=== PATIENT | male | born 1985 | race Caucasian/White ===

== ENCOUNTER 2016-10-31 20:25 | Emergency (ER) | payer MEDICARE ==
[~2016-10-31] VITALS: Ht 175.3 cm; Wt 81.6 kg
[~2016-10-31 20:25] MED LIST: [UNRECOGNIZED DRUG - OTHER] PO
--- NOTE | 2016-10-31 20:47 | NUR ---
SPOKE WITH OFELIA FROM POISON CONTROL. CAN CONSIDER ACTIVATED CHARCOAL AT MD'S DISCRETION. POSSIBLE SEIZURE AND ASPIRATION RISK. RECOMMEND OBS, 6 HOURS FROM TIME OF INGESTION, BENZOS IF PT PRESENTS WITH SEIZURES OR AGITATION, BICARB BOLUS IF QRS INTERVAL IS GREATER THAN 120, CARDIAC MONITORING, BASIC TOX LABS(TYLENOL, ASPIRIN, ALC), BMP. RISK OF DROWSINESS, TACHYCARDIA. IN SEVERE CASES CAN LEAD TO SEIZURES, COMA, RESPIRATORY DEPRESSION, HYPOTENSION. GASTRIC LAVAGE IS NOT RECOMMENDED.
[2016-10-31] MEDS ORDERED: ACTIVATED CHARCOAL 25 GM/120 ML TUBE ONE (20:48)
[2016-10-31 20:56] LABS: BASOPHILS # (AUTO) 0.1 /CMM (0.0-0.2); EOSINOPHILS % (AUTO) 0.8 % (0.0-6.0); HEMATOCRIT 47 % (39-51); HEMOGLOBIN 15.5 g/dL (13.5-17.5); LYMPHOCYTES # (AUTO) 1.1 /CMM (0.8-4.8); LYMPHOCYTES % (AUTO) 21.5 % (20.0-44.0); MEAN CORPUSCULAR HEMOGLOBIN 32 PG (26.0-33.0); MEAN CORPUSCULAR HGB CONC 33 g/dl (31.0-36.0); MEAN CORPUSCULAR VOLUME 97 fL (80-96); MONOCYTES # (AUTO) 0.7 /CMM (0.1-1.30); MONOCYTES % (AUTO) 12.2 % (2.0-12.0); NEUTROPHILS # (AUTO) 3.4 /CMM (1.8-8.9); NEUTROPHILS % (AUTO) 64.5 % (43.0-81.0); PLATELET COUNT (AUTO) 249 /CMM (150-450); RDW COEFFICIENT OF VARIATION 12.5 (11.5-15.0); RED BLOOD CELL COUNT(AUTO) 4.82 MIL/uL (4.5-6.0); WHITE BLOOD COUNT (AUTO) 5.3 K/uL (4.3-11.0)
[2016-10-31 20:57] LABS: APPEARANCE,URINE Clear (CLEAR); BILIRUBIN,URINE Negative (NEGATIVE); BLOOD, URINE Negative Ery/uL (NEGATIVE); COLOR,URINE Yellow (YELLOW); KETONES,URINE Negative (NEGATIVE); LEUKOCYTE ESTERASE ,URINE Negative (NEGATIVE); NITRITE, URINE Negative (NEGATIVE); PH,URINE 5.5 (5.0-8.0); PROTEIN,URINE Negative (NEGATIVE); UGLUCOSE Negative (NEGATIVE); UROBILINOGEN,URINE 0.2 EU/dL (0.2)
[2016-10-31] MEDS ORDERED: IV NS 0.9% 1,000 ML BAG IV ONE (21:00)
[2016-10-31] MEDS ORDERED: ACTIVATED CHARCOAL 25 GM/120 ML TUBE PO ONE (21:00)
--- NOTE | 2016-10-31 21:00 | NUR ---
PT REFUSED ACTIVATED CHARCOAL. NOTIFIED
[2016-10-31 21:10] LABS: CALCIUM, SERUM 8.4 mg/dL (8.5-10.1); CARBON DIOXIDE 26 mmol/L (21-32); CHLORIDE 110 mmol/L (98-107); CREATININE 1.2 mg/dL (0.6-1.3); GLUCOSE 127 mg/dL (74-106); POTASSIUM 3.5 mmol/L (3.5-5.1); SODIUM SERUM 141 mmol/L (136-145); UREA NITROGEN, BLOOD 13 mg/dL (7-18)
--- NOTE | 2016-10-31 21:17 | NUR ---
PT RESTING IN BED COMFORTABLY. WILL CONTINUE TO MONITOR.
[2016-10-31 21:24] LABS: ALANINE AMINOTRANSFERASE 15 U/L (12-78); ALBUMIN 3.8 g/dL (3.4-5.0); ALCOHOL, BLOOD < 3 mg/dL (0-0); ALKALINE PHOSPHATASE 51 U/L (46-116); ASPARTATE AMINOTRANSFERASE 24 U/L (15-37); BILIRUBIN,DIRECT 0.1 mg/dL (0.0-0.2); BILIRUBIN,TOTAL 0.3 mg/dL (0.2-1.0); SALICYLATE < 2.8 mg/dL (2.8-20.0); TOTAL PROTEIN, SERUM 6.7 g/dL (6.4-8.2)
[2016-10-31 21:25] LABS: ACETAMINOPHEN < 2 ug/ml (10-30)
--- NOTE | 2016-10-31 23:37 | NUR ---
PT IS RESTING IN ER ROOM. WILL CONITNUE TO MONITOR
--- NOTE | 2016-11-01 01:07 | NUR ---
ART CLS AT BED SIDE FOR EVAL
[2016-11-01 01:17] VITALS: BP 142/80
== END 2016-11-01 01:18 | disposition home or self-care (01) ==
LOC: ER 20:26
DX: T42.8X1A Poisoning by antiparkinsonism drugs and other central muscle-tone depressants, accidental (unintentional), initial encounter (principal); F32.9 Major depressive disorder, single episode, unspecified; F41.9 Anxiety disorder, unspecified; F43.10 Post-traumatic stress disorder, unspecified; Y92.89 Other specified places as the place of occurrence of the external cause
CPT/HCPCS: 36415; 80048; 80076; 80305; 80329; 81001; 85025; 93005; 96360; 99285; A4606; G0480 ×2; J7030 ×2; 81000-TC; Z7610

== ENCOUNTER 2018-01-25 09:52 | Emergency (ER) | payer MEDICARE ==
[~2018-01-25] VITALS: Ht 188 cm; Wt 102.5 kg
[2018-01-25 10:36] LABS: BASOPHILS # (AUTO) 0.1 /CMM (0.0-0.2); BASOPHILS % (AUTO) 0.8 % (0.0-2.0); EOSINOPHILS % (AUTO) 0.5 % (0.0-6.0); HEMATOCRIT 57 % (39-51); LYMPHOCYTES # (AUTO) 0.8 /CMM (0.8-4.8); LYMPHOCYTES % (AUTO) 12.7 % (20.0-44.0); MEAN CORPUSCULAR HGB CONC 34 g/dl (31.0-36.0); MEAN CORPUSCULAR VOLUME 96 fL (80-96); MONOCYTES # (AUTO) 0.7 /CMM (0.1-1.30); MONOCYTES % (AUTO) 10.1 % (2.0-12.0); NEUTROPHILS # (AUTO) 5.1 /CMM (1.8-8.9); NEUTROPHILS % (AUTO) 75.9 % (43.0-81.0); PLATELET COUNT (AUTO) 296 /CMM (150-450); RDW COEFFICIENT OF VARIATION 12.1 (11.5-15.0); RED BLOOD CELL COUNT(AUTO) 5.89 MIL/uL (4.5-6.0); WHITE BLOOD COUNT (AUTO) 6.7 K/uL (4.3-11.0)
[2018-01-25 10:37] LABS: HEMOGLOBIN 19.2 g/dL (13.5-17.5)
[2018-01-25 10:41] LABS: CALCIUM, SERUM 9.6 mg/dL (8.5-10.1); CREATININE 1.2 mg/dL (0.6-1.3); POTASSIUM 4.4 mmol/L (3.5-5.1)
[2018-01-25 10:46] LABS: ALBUMIN 4.6 g/dL (3.4-5.0); BILIRUBIN,DIRECT 0.1 mg/dL (0.0-0.2); TOTAL PROTEIN, SERUM 8.1 g/dL (6.4-8.2)
[2018-01-25 11:00] LABS: EOSINOPHILS % (MANUAL) 2 % (0-4); LYMPHOCYTES % (MANUAL) 11 % (16-48); MONOCYTES % (MANUAL) 4 % (0-11.0); NEUTROPHILS % (MANUAL) 83 (42-76)
[2018-01-25 11:03] LABS: APPEARANCE,URINE Clear (CLEAR); BILIRUBIN,URINE Negative (NEGATIVE); BLOOD, URINE Negative Ery/uL (NEGATIVE); COLOR,URINE Yellow (YELLOW); KETONES,URINE Negative (NEGATIVE); LEUKOCYTE ESTERASE ,URINE Negative (NEGATIVE); NITRITE, URINE Negative (NEGATIVE); PH,URINE 6.5 (5.0-8.0); PROTEIN,URINE Negative (NEGATIVE); UGLUCOSE Negative (NEGATIVE); UROBILINOGEN,URINE 0.2 EU/dL (0.2)
[2018-01-25 11:40] VITALS: BP 123/87
== END 2018-01-25 11:40 | disposition home or self-care (01) ==
LOC: ER 09:54
DX: E86.0 Dehydration (principal); R10.9 Unspecified abdominal pain; F41.9 Anxiety disorder, unspecified; Z89.201 Acquired absence of right upper limb, unspecified level
CPT/HCPCS: 36415; 76770; 80048; 80076; 81001; 82550; 85025; 99285; A4606; 81000-TC; Z7610